=== PATIENT | male | born 1945 | race Caucasian/White ===

== ENCOUNTER 2016-05-03 07:37 | Outpatient (CLI) | payer MEDICARE | END 2016-05-03 07:38 | disposition home or self-care (01) | DX: I10 Essential (primary) hypertension (principal); E78.2 Mixed hyperlipidemia; Z79.899 Other long term (current) drug therapy; C61 Malignant neoplasm of prostate ==

== ENCOUNTER 2016-10-17 08:00 | Outpatient (CLI) | payer MEDICARE ==
[2016-10-17 11:23] LABS: BASOPHILS % (AUTO) 0.2 %; EOSINOPHILS # (AUTO) 0.1 10^3/uL (0.0-0.7); EOSINOPHILS % (AUTO) 2.3 %; HCT - HEMATOCRIT 43.4 % (42.0-52.0); HGB - HEMOGLOBIN 15.2 g/dL (14.0-18.0); LYMPHOCYTES # (AUTO) 1.9 10^3/uL (1.5-3.5); LYMPHOCYTES % (AUTO) 35.5 %; MEAN CORPUSCULAR HEMOGLOBIN 31.7 pg (27.0-31.0); MEAN CORPUSCULAR VOLUME 90.5 fL (80.0-94.0); MEAN PLATELET VOLUME 8.5 fL (7.4-11.4); MONOCYTES # (AUTO) 0.5 10^3/uL (0.0-1.0); MONOCYTES % (AUTO) 8.4 %; NEUTROPHILS # (AUTO) 2.9 10^3/uL (1.5-6.6); NEUTROPHILS % (AUTO) 53.6 %; RED BLOOD COUNT 4.79 10^6/uL (4.70-6.10); RED CELL DISTRIBUTION WIDTH 13.3 % (12.0-15.0); UNCORRECTED WHITE BLOOD COUNT 5.5 x10^3/uL; WHITE BLOOD COUNT 5.5 x10^3/uL (4.8-10.8)
[2016-10-17 11:44] LABS: ALBUMIN/GLOBULIN RATIO 1.7 (1.0-2.2); BILIRUBIN,TOTAL 1.6 mg/dL (0.2-1.0); BUN - BLOOD UREA NITROGEN 12 mg/dL (6-20); CARBON DIOXIDE - CO2 26 mmol/L (21-32); CHLORIDE 106 mmol/L (101-111); CHOL/HDL RATIO 3.2 (<5.0); CHOLESTEROL 127 mg/dL; CREATININE 0.8 mg/dL (0.6-1.2); GFR - MDRD 95 (>89); GLUCOSE 88 mg/dL (70-100); HDL CHOLESTEROL 40 mg/dL; LDL/HDL RATIO 1.5 (<3.6); POTASSIUM 3.8 mmol/L (3.5-5.0); SODIUM 140 mmol/L (135-145); TOTAL PROTEIN 6.8 g/dL (6.7-8.2); TRIGLYCERIDES 133 mg/dL; VLDL CHOLESTEROL 27 mg/dL
== END 2016-10-17 08:01 | disposition home or self-care (01) ==
LOC: LAB.R 08:00
PROVIDERS: ATTEND Internal Medicine
DX: E78.2 Mixed hyperlipidemia (principal); Z79.899 Other long term (current) drug therapy; C61 Malignant neoplasm of prostate
CPT/HCPCS: 80053; 80061; 84153; 84443; 85025

== ENCOUNTER 2016-10-27 09:04 | Outpatient (CLI) | payer MEDICARE | END 2016-10-27 09:05 | disposition home or self-care (01) | LOC: DI 09:04 | PROVIDERS: ATTEND Internal Medicine | DX: R01.1 Cardiac murmur, unspecified (principal) | CPT/HCPCS: 93306 ==

== ENCOUNTER 2016-11-19 08:43 | Outpatient (CLI) | payer MEDICARE | END 2016-11-19 08:44 | disposition home or self-care (01) | LOC: LAB.R 08:43 | PROVIDERS: ATTEND Internal Medicine | DX: Z72.89 Other problems related to lifestyle (principal) | CPT/HCPCS: 86803 ==

== ENCOUNTER 2017-12-08 08:00 | Outpatient (CLI) | payer MEDICARE ==
[2017-12-08 13:13] LABS: BASOPHILS % (AUTO) 0.2 %; EOSINOPHILS # (AUTO) 0.1 10^3/uL (0.0-0.7); EOSINOPHILS % (AUTO) 1.9 %; HGB - HEMOGLOBIN 17.2 g/dL (14.0-18.0); LYMPHOCYTES # (AUTO) 2.2 10^3/uL (1.5-3.5); MEAN CORPUSCULAR HEMOGLOBIN 32.6 pg (27.0-31.0); MEAN CORPUSCULAR HGB CONC 35.1 g/dL (32.0-36.0); MEAN CORPUSCULAR VOLUME 92.8 fL (80.0-94.0); MEAN PLATELET VOLUME 8.9 fL (7.4-11.4); MONOCYTES # (AUTO) 0.5 10^3/uL (0.0-1.0); MONOCYTES % (AUTO) 8.3 %; NEUTROPHILS # (AUTO) 3.4 10^3/uL (1.5-6.6); NEUTROPHILS % (AUTO) 54.6 %; PLT - PLATELET COUNT 224 10^3/uL (130-450); RED BLOOD COUNT 5.27 10^6/uL (4.70-6.10); WHITE BLOOD COUNT 6.2 x10^3/uL (4.8-10.8)
[2017-12-08 13:28] LABS: ALBUMIN 4.4 g/dL (3.2-5.5); ALBUMIN/GLOBULIN RATIO 1.5 (1.0-2.2); ALKALINE PHOSPHATASE 48 IU/L (42-121); ALT ALANINE AMINOTRANSFERASE 26 IU/L (10-60); AST ASPARTATE AMINOTRANSFERASE 25 IU/L (10-42); BILIRUBIN,TOTAL 3.1 mg/dL (0.2-1.0); BUN - BLOOD UREA NITROGEN 16 mg/dL (6-20); CALCIUM 9.1 mg/dL (8.5-10.3); CARBON DIOXIDE - CO2 25 mmol/L (21-32); CHLORIDE 105 mmol/L (101-111); CHOL/HDL RATIO 3.4 (<5.0); CHOLESTEROL 161 mg/dL; CREATININE 0.9 mg/dL (0.6-1.2); GFR - MDRD 83 (>89); GLUCOSE 101 mg/dL (70-100); HDL CHOLESTEROL 47 mg/dL; LDL CHOLESTEROL,CALCULATED 94 mg/dL; SODIUM 139 mmol/L (135-145); TOTAL PROTEIN 7.4 g/dL (6.7-8.2); VLDL CHOLESTEROL 20 mg/dL
== END 2017-12-08 08:01 | disposition home or self-care (01) ==
LOC: LAB.R 08:00
PROVIDERS: ATTEND Internal Medicine
DX: C61 Malignant neoplasm of prostate (principal); I10 Essential (primary) hypertension; E78.5 Hyperlipidemia, unspecified
CPT/HCPCS: 80053; 80061; 83721; 84153; 85025

== ENCOUNTER 2017-12-18 09:25 | Outpatient (CLI) | payer MEDICARE ==
[2017-12-18 12:08] LABS: BILIRUBIN,DIRECT 0.2 mg/dL (0.1-0.5); BILIRUBIN,INDIRECT 1.9 mg/dL; BILIRUBIN,TOTAL 2.1 mg/dL (0.2-1.0)
== END 2017-12-18 09:26 | disposition home or self-care (01) ==
LOC: LAB.R 09:25
PROVIDERS: ATTEND Internal Medicine
DX: R94.5 Abnormal results of liver function studies (principal)
CPT/HCPCS: 82247; 82248

== ENCOUNTER 2017-12-21 09:00 | Outpatient (CLI) | payer MEDICARE ==
--- NOTE | 2017-12-21 16:31 | Ultrasound Report ---
Reason: ABNORMAL LIVER ENZYMES Procedure Date: 12/21/2017 Accession Number: [id number] / [id number] Procedure: US - Abdomen Complete CPT Code: FULL RESULT: EXAM: ABDOMEN ULTRASOUND EXAM DATE: 12/21/2017 09:46 AM. CLINICAL HISTORY: Elevated LFTs COMPARISON: None. TECHNIQUE: Real-time scanning was performed with static images obtained. FINDINGS: Liver: Diffusely dense, echogenic parenchyma, most commonly indicating steatosis. Main portal vein flow: Hepatopetal. Gallbladder: Normal. No stones, wall thickening, or sonographic Samuels's sign. Biliary System: Common bile duct measures 4 mm. No intrahepatic or extrahepatic ductal dilatation. Pancreas: Unremarkable as visualized. Kidneys: Right: 10.7 cm in length. Normal parenchymal echotexture. No visualized shadowing stones or hydronephrosis. Left: 11.7 cm in length. Normal parenchymal echotexture. No visualized shadowing stones or hydronephrosis. Spleen: Normal size and echotexture, 11.3 cm in length. Aorta and Inferior Vena Cava: Unremarkable. Other: None. IMPRESSION: 1. Steatotic liver. 2. Otherwise unremarkable abdominal ultrasound. [facility]
== END 2017-12-21 09:01 | disposition home or self-care (01) ==
LOC: DI 09:00
PROVIDERS: ATTEND Internal Medicine
DX: K76.0 Fatty (change of) liver, not elsewhere classified (principal)
CPT/HCPCS: 76700

== ENCOUNTER 2018-05-04 08:00 | Outpatient (CLI) | payer MEDICARE ==
[2018-05-04 15:29] LABS: ALBUMIN 4.5 g/dL (3.2-5.5); BILIRUBIN,DIRECT 0.2 mg/dL (0.1-0.5); BILIRUBIN,TOTAL 2.1 mg/dL (0.2-1.0); TOTAL PROTEIN 7.4 g/dL (6.7-8.2)
== END 2018-05-04 23:59 ==
LOC: LAB.R 08:00
PROVIDERS: ATTEND Internal Medicine
DX: R94.5 Abnormal results of liver function studies (principal)
CPT/HCPCS: 80076

== ENCOUNTER 2018-06-03 09:55 | Outpatient (CLI) | payer MEDICARE ==
[2018-06-03 13:46] LABS: ALBUMIN 4.5 g/dL (3.2-5.5); BILIRUBIN,DIRECT 0.3 mg/dL (0.1-0.5); TOTAL PROTEIN 7.3 g/dL (6.7-8.2)
[2018-06-04 12:17] LABS: HEPATITIS A IGM NON-REACTIVE (NON-REACTIVE); HEPATITIS B CORE ANTIBODY IGM NON-REACTIVE (NON-REACTIVE); HEPATITIS B SURFACE ANTIGEN NON-REACTIVE (NON-REACTIVE); HEPATITIS C ANTIBODY NON-REACTIVE (NON-REACTIVE)
== END 2018-06-03 23:59 | disposition home or self-care (01) ==
LOC: LAB.R 09:55
PROVIDERS: ATTEND Internal Medicine
DX: R94.5 Abnormal results of liver function studies (principal)
CPT/HCPCS: 80074; 80076

== ENCOUNTER 2019-12-09 09:02 | Outpatient (CLI) | payer MEDICARE ==
[2019-12-09 11:37] LABS: BASOPHILS % (AUTO) 0.3 %; EOSINOPHILS # (AUTO) 0.1 10^3/uL (0.0-0.7); EOSINOPHILS % (AUTO) 1.9 %; HGB - HEMOGLOBIN 16.5 g/dL (14.0-18.0); LYMPHOCYTES # (AUTO) 2.1 10^3/uL (1.5-3.5); MEAN CORPUSCULAR HEMOGLOBIN 32.1 pg (27.0-31.0); MEAN CORPUSCULAR VOLUME 91.8 fL (80.0-94.0); MEAN PLATELET VOLUME 10.7 fL (7.4-11.4); MONOCYTES # (AUTO) 0.4 10^3/uL (0.0-1.0); MONOCYTES % (AUTO) 7.2 %; NEUTROPHILS % (AUTO) 53.1 %; PLT - PLATELET COUNT 224 10^3/uL (130-450); RED BLOOD COUNT 5.14 10^6/uL (4.70-6.10); RED CELL DISTRIBUTION WIDTH 12.5 % (12.0-15.0); WHITE BLOOD COUNT 5.7 x10^3/uL (4.8-10.8)
[2019-12-09 11:53] LABS: ALBUMIN 4.7 g/dL (3.2-5.5); ALBUMIN/GLOBULIN RATIO 1.8 (1.0-2.2); BILIRUBIN,TOTAL 1.9 mg/dL (0.2-1.0); CALCIUM 9.3 mg/dL (8.5-10.3); CREATININE 0.8 mg/dL (0.6-1.2); TOTAL PROTEIN 7.3 g/dL (6.7-8.2)
== END 2019-12-09 23:59 | disposition home or self-care (01) ==
LOC: LAB.WCP 09:02
PROVIDERS: ATTEND Family Medicine
DX: I48.91 Unspecified atrial fibrillation (principal); I10 Essential (primary) hypertension; Z68.28 Body mass index [BMI] 28.0-28.9, adult; C61 Malignant neoplasm of prostate; E78.5 Hyperlipidemia, unspecified
CPT/HCPCS: 36415; 80053; 84443; 85025

== ENCOUNTER 2020-06-12 11:25 | Outpatient (CLI) | payer MEDICARE ==
[2020-06-12 18:51] LABS: BUN - BLOOD UREA NITROGEN 12 mg/dL (6-20); CALCIUM 9.5 mg/dL (8.5-10.3); CARBON DIOXIDE - CO2 23 mmol/L (21-32); CHLORIDE 106 mmol/L (101-111); CHOL/HDL RATIO 4.1 (<5.0); CHOLESTEROL 240 mg/dL; CREATININE 0.8 mg/dL (0.6-1.2); GLUCOSE 91 mg/dL (70-100); HDL CHOLESTEROL 59 mg/dL; LDL CHOLESTEROL,CALCULATED 152 mg/dL; LDL/HDL RATIO 2.6 (<3.6); VLDL CHOLESTEROL 29 mg/dL
[2020-06-12 20:48] LABS: HEMOGLOBIN A1c% 4.9 % (4.27-6.07)
== END 2020-06-12 23:59 | disposition home or self-care (01) ==
LOC: LAB.WCP 11:25
PROVIDERS: ATTEND Family Medicine
DX: I48.91 Unspecified atrial fibrillation (principal); C61 Malignant neoplasm of prostate; I10 Essential (primary) hypertension; E78.5 Hyperlipidemia, unspecified; R73.9 Hyperglycemia, unspecified
CPT/HCPCS: 36415; 80048; 80061; 83036; 83721

== ENCOUNTER 2020-09-09 16:27 | Outpatient (CLI) | payer MEDICARE ==
--- NOTE | 2020-09-09 23:58 | Ultrasound Report ---
PROCEDURE: Duplex Lwr Ext Arterial Bilat INDICATIONS: PERIPHERAL ARTERY INSUFFICICENCY TECHNIQUE: Color and pulse Doppler interrogation was performed of both lower extremity arterial systems, with im age documentation. COMPARISON: None. FINDINGS: Right lower extremity: Common femoral artery: 61.9 cm/sec, with triphasic flow. Deep femoral artery: 41.6 cm/sec, with triphasic flow. Proximal superficial femoral artery: 66.0 cm/sec, with triphasic flow. Mid superficial femoral artery: 56.5 cm/sec, with triphasic flow. Distal superficial femoral artery: 47.9 cm/sec, with triphasic flow. Popliteal artery: 44.7 cm/sec, with triphasic flow. Posterior tibial artery: 108.7 cm/sec, with triphasic flow. Anterior tibial artery/dorsalis pedis: 38.9/32.1 cm/sec, with triphasic flow. Marquez-scale imaging description: Atherosclerotic plaque noted in the right common femoral artery and distal right superficial femoral artery. Atherosclerotic calcifications also noted in the right calf arteries. Left lower extremity: Common femoral artery: 51.1 cm/sec, with triphasic flow. Deep femoral artery: 46.5 cm/sec, with triphasic flow. Proximal superficial femoral artery: 68.7 cm/sec, with triphasic flow. Mid superficial femoral artery: 42.1 cm/sec, with triphasic flow. Distal superficial femoral artery: 46.9 cm/sec, with triphasic flow. Popliteal artery: 39.8 cm/sec, with triphasic flow. Posterior tibial artery: 21.2 cm/sec, with biphasic and monophasic flow respectively. Anterior tibial artery/dorsalis pedis: 33.9/34.2 cm/sec, with triphasic and monophasic flow, respect ively. Marquez-scale imaging description: Atherosclerotic calcifications noted in the left calf arteries. IMPRESSION: 1. Atherosclerotic calcifications involving the right common femoral artery, right distal superficial femoral artery, and bilateral calf arteries with normal triphasic waveforms of the bilateral lower e xtremities. Relatively symmetric velocities. 2. Symmetric velocity of the distal arteries of the foot; however, there is monophasic waveforms of t he left posterior tibial artery and left dorsalis pedis suggestive of moderate peripheral artery dis ease. Reviewed by: Dharmesh Gomez MD on 09/09/2020 11:57 PM PDT Approved by: Dharmesh Gomez MD on 09/09/2020 11:57 PM PDT Station ID: [id number]
== END 2020-09-09 16:28 | disposition home or self-care (01) ==
LOC: DI 16:27
PROVIDERS: ATTEND Family Medicine
DX: I70.202 Unspecified atherosclerosis of native arteries of extremities, left leg (principal); I70.291 Other atherosclerosis of native arteries of extremities, right leg
CPT/HCPCS: 93925

== ENCOUNTER 2020-12-11 08:00 | Outpatient (CLI) | payer MEDICARE ==
[2020-12-11 11:53] LABS: BILIRUBIN,URINE NEGATIVE (NEGATIVE); GLUCOSE, URINE (UA) NEGATIVE (NEGATIVE); KETONES,URINE (UA) NEGATIVE (NEGATIVE); LEUKOCYTE ESTERASE, URINE TRACE (NEGATIVE); NITRITE,URINE NEGATIVE (NEGATIVE); OCCULT BLOOD,URINE NEGATIVE (NEGATIVE); PH,URINE 5.5 PH (5.0-7.5); PROTEIN,URINE NEGATIVE (NEGATIVE); UROBILINOGEN,URINE 0.2 (NORMAL) E.U./dL (NORMAL)
[2020-12-11 11:54] LABS: CLARITY,URINE CLEAR (CLEAR)
[2020-12-11 12:01] LABS: BACTERIA,URINE Few /HPF (None Seen); RBC,URINE 0-5 /HPF (0-5); SQUAMOUS EPITHELIAL CELL,UR FEW Squamous (<= Few)
[2020-12-11 12:09] LABS: BASOPHILS % (AUTO) 0.4 %; EOSINOPHILS # (AUTO) 0.2 10^3/uL (0.0-0.7); EOSINOPHILS % (AUTO) 3.5 %; HCT - HEMATOCRIT 45.9 % (42.0-52.0); HGB - HEMOGLOBIN 16.4 g/dL (14.0-18.0); LYMPHOCYTES # (AUTO) 1.8 10^3/uL (1.5-3.5); LYMPHOCYTES % (AUTO) 37.9 %; MEAN CORPUSCULAR HEMOGLOBIN 32.2 pg (27.0-31.0); MEAN CORPUSCULAR HGB CONC 35.7 g/dL (32.0-36.0); MEAN CORPUSCULAR VOLUME 90.2 fL (80.0-94.0); MEAN PLATELET VOLUME 10.9 fL (7.4-11.4); MONOCYTES # (AUTO) 0.5 10^3/uL (0.0-1.0); MONOCYTES % (AUTO) 10.3 %; NEUTROPHILS # (AUTO) 2.3 10^3/uL (1.5-6.6); NEUTROPHILS % (AUTO) 47.5 %; PLT - PLATELET COUNT 233 10^3/uL (130-450); RED BLOOD COUNT 5.09 10^6/uL (4.70-6.10); RED CELL DISTRIBUTION WIDTH 12.6 % (12.0-15.0); WHITE BLOOD COUNT 4.9 x10^3/uL (4.8-10.8)
[2020-12-11 12:23] LABS: ALBUMIN 4.6 g/dL (3.2-5.5); ALBUMIN/GLOBULIN RATIO 1.6 (1.0-2.2); ALKALINE PHOSPHATASE 52 IU/L (42-121); ALT ALANINE AMINOTRANSFERASE 34 IU/L (10-60); AST ASPARTATE AMINOTRANSFERASE 30 IU/L (10-42); BILIRUBIN,TOTAL 1.1 mg/dL (0.2-1.0); BUN - BLOOD UREA NITROGEN 21 mg/dL (6-20); CALCIUM 9.6 mg/dL (8.5-10.3); CARBON DIOXIDE - CO2 27 mmol/L (21-32); CHLORIDE 107 mmol/L (101-111); CHOL/HDL RATIO 3.3 (<5.0); CHOLESTEROL 169 mg/dL; CREATININE 0.8 mg/dL (0.6-1.2); GFR - MDRD 94 (>89); GLUCOSE 106 mg/dL (70-100); HDL CHOLESTEROL 52 mg/dL; LDL CHOLESTEROL,CALCULATED 102 mg/dL; POTASSIUM 4.8 mmol/L (3.5-5.0); SODIUM 140 mmol/L (135-145); TOTAL PROTEIN 7.4 g/dL (6.7-8.2); TRIGLYCERIDES 75 mg/dL; VLDL CHOLESTEROL 15 mg/dL
[2020-12-11 12:39] LABS: ESTIMATED AVERAGE GLUCOSE 88 mg/dL (70-100); HEMOGLOBIN A1c% 4.7 % (4.27-6.07)
== END 2020-12-11 23:59 | disposition home or self-care (01) ==
LOC: LAB.WCP 08:00
PROVIDERS: ATTEND Family Medicine
DX: I10 Essential (primary) hypertension (principal); R73.9 Hyperglycemia, unspecified; C61 Malignant neoplasm of prostate; E78.5 Hyperlipidemia, unspecified; I73.9 Peripheral vascular disease, unspecified; I48.91 Unspecified atrial fibrillation
CPT/HCPCS: 36415; 80053; 80061; 81001; 83036; 83721; 84443; 85025

== ENCOUNTER 2021-10-10 15:08 | Outpatient (CLI) | payer MEDICARE ==
--- NOTE | 2021-10-10 16:42 | MRI Report ---
PROCEDURE: Knee RT W/O INDICATIONS: OSTEOARTHRITIS TECHNIQUE: Noncontrast sagittal PD fast spin echo and T2 fast spin echo with fat saturation, sagittal 3-D gradie nt sequence with fat saturation; coronal T1 spin echo and PD fast spin echo with fat saturation, and axial PD fast spin echo with fat saturation through the knee. COMPARISON: None. FINDINGS: Image quality: Excellent. Menisci: Peripheral displacement of medial meniscus bowing medial collateral ligament is seen. Obliqu e tear involving posterior horn of medial meniscus is seen extending to inferior articulating surface . There is no focal lateral meniscal tear. The meniscal root ligaments appear intact. Cruciate ligaments: The anterior and posterior cruciate ligaments appear intact. Medial structures: Low-grade medial collateral ligament sprain/partial thickness tear near its femora l insertion is seen. The posterior oblique ligament, semimembranosus tendon insertions, and oblique p opliteal ligament, and meniscocapsular junction appear intact. Visualized portions of the pes anseri nus tendons appear normal. No abnormal bursal fluid. Lateral structures: The lateral collateral ligament, long and short heads of the biceps femoris tend on appear intact. The popliteus tendon appears normal; the popliteofibular ligament appears intact. Iliotibial band appears normal. Anterior structures: Distal quadriceps tendinosis at its superior patella insertion is noted. Proxima l patella tendinosis at its inferior patella insertion is seen. Distal patellar tendinosis at its ant erior tibial insertion is noted. Patellar alignment is normal. No femoral trochlear dysplasia or monica tral trochlear prominence. No edema in the infrapatellar fat pad. Bones and cartilage: Significant marrow edema involving posterior lateral portion of patella without definite fracture line. Well-corticated fragment anterior to tibial tuberosity is seen near distal pa tellar tendon insertion suggestive of old healed [place]-Schlatter disease. Mild to moderate tricompar tmental osteoarthritis and chondromalacia is seen more prominent in medial femoral tibial compartment and lateral portion of patellofemoral compartment. Suggestion of small osteochondral injury involvin g anterior weightbearing portion of lateral femoral condyle is seen measures 5 mm in size. Suggestion of osteochondral injury involving posterior lateral aspect of patella measures 3 to 4 mm in size is also seen. Joint space: There is small to moderate joint effusion, no gross intra-articular loose bodies. Small popliteal cyst is seen. Normal appearing synovial plicae are incidentally noted. IMPRESSION: 1. Oblique tear involving posterior horn of medial meniscus extending to inferior articulating surfac e. No focal lateral meniscal tear. 2. Cruciate ligaments are intact. Low-grade MCL sprain/partial thickness tear. 3. Distal quadriceps tendinosis. Proximal and distal patellar tendinosis. No tendon rupture. 4. 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 Suggestion of bony contusion and/or osteochondr al injury involving posterior lateral patella with extensive marrow edema. No fracture line is seen. Mild to moderate tricompartmental osteoarthritis more prominent in medial femoral tibial compartment and lateral portion of patella femoral compartment. Small osteochondral injury also seen involving an terior weightbearing portion of lateral femoral condyle. Small to moderate joint effusion and small p opliteal cyst. Reviewed by: Porter Montiel MD on 10/10/2021 4:40 PM PDT Approved by: Porter Montiel MD on 10/10/2021 4:40 PM PDT Station ID: [id number]
== END 2021-10-10 15:09 | disposition home or self-care (01) ==
LOC: DI 15:08
PROVIDERS: ATTEND Orthopaedic Surgery
DX: S83.241A Other tear of medial meniscus, current injury, right knee, initial encounter (principal); S83.411A Sprain of medial collateral ligament of right knee, initial encounter; M67.863 Other specified disorders of tendon, right knee; M17.11 Unilateral primary osteoarthritis, right knee; M94.8X8 Other specified disorders of cartilage, other site; M25.461 Effusion, right knee; M71.21 Synovial cyst of popliteal space [Baker], right knee

== ENCOUNTER 2021-11-19 08:52 | Outpatient (CLI) | payer MEDICARE ==
[2021-11-19 11:54] LABS: BASOPHILS % (AUTO) 0.2 %; EOSINOPHILS # (AUTO) 0.1 10^3/uL (0.0-0.7); EOSINOPHILS % (AUTO) 1.5 %; HCT - HEMATOCRIT 45.3 % (42.0-52.0); HGB - HEMOGLOBIN 16.7 g/dL (14.0-18.0); LYMPHOCYTES # (AUTO) 1.8 10^3/uL (1.5-3.5); LYMPHOCYTES % (AUTO) 32.5 %; MEAN CORPUSCULAR HEMOGLOBIN 33.7 pg (27.0-31.0); MEAN CORPUSCULAR HGB CONC 36.9 g/dL (32.0-36.0); MEAN CORPUSCULAR VOLUME 91.3 fL (80.0-94.0); MEAN PLATELET VOLUME 11.3 fL (7.4-11.4); MONOCYTES # (AUTO) 0.5 10^3/uL (0.0-1.0); MONOCYTES % (AUTO) 9.5 %; NEUTROPHILS % (AUTO) 56.1 %; PLT - PLATELET COUNT 201 10^3/uL (130-450); RED BLOOD COUNT 4.96 10^6/uL (4.70-6.10); RED CELL DISTRIBUTION WIDTH 13.1 % (12.0-15.0); WHITE BLOOD COUNT 5.4 x10^3/uL (4.8-10.8)
[2021-11-19 12:19] LABS: ALBUMIN 4.3 g/dL (3.2-5.5); ALBUMIN/GLOBULIN RATIO 1.6 (1.0-2.2); ALKALINE PHOSPHATASE 41 IU/L (42-121); ALT ALANINE AMINOTRANSFERASE 27 IU/L (10-60); AST ASPARTATE AMINOTRANSFERASE 26 IU/L (10-42); BILIRUBIN,TOTAL 1.9 mg/dL (0.2-1.0); BUN - BLOOD UREA NITROGEN 16 mg/dL (6-20); CALCIUM 9.9 mg/dL (8.5-10.3); CARBON DIOXIDE - CO2 26 mmol/L (21-32); CHLORIDE 104 mmol/L (101-111); CHOL/HDL RATIO 3.8 (<5.0); CHOLESTEROL 222 mg/dL; CREATININE 0.8 mg/dL (0.6-1.2); GFR - MDRD 94 (>89); GLUCOSE 96 mg/dL (70-100); HDL CHOLESTEROL 58 mg/dL; LDL CHOLESTEROL,CALCULATED 135 mg/dL; LDL/HDL RATIO 2.3 (<3.6); SODIUM 137 mmol/L (135-145); TRIGLYCERIDES 145 mg/dL; VLDL CHOLESTEROL 29 mg/dL
[2021-11-19 12:31] LABS: THYROID STIMULATING HORMONE 2.43 uIU/mL (0.34-5.60)
[2021-11-19 13:51] LABS: ESTIMATED AVERAGE GLUCOSE 97 mg/dL (70-100)
== END 2021-11-19 08:53 | disposition home or self-care (01) ==
LOC: LAB.N 08:52
PROVIDERS: ATTEND Family Medicine
DX: E78.5 Hyperlipidemia, unspecified (principal); R73.9 Hyperglycemia, unspecified; I48.91 Unspecified atrial fibrillation; I10 Essential (primary) hypertension
CPT/HCPCS: 36415; 80053; 80061; 83036; 83721; 84443; 85025